=== PATIENT | male | born 1950 | race Caucasian/White ===

== ENCOUNTER 2017-11-10 14:46 | Emergency (ER) | payer MEDICARE, BC ==
[~2017-11-10] VITALS: Ht 591.1 cm; Wt 79.5 kg
[~2017-11-10 14:46] MED LIST: CARV3.125 PO; LISI-604 PO; NITR0.4T51 SL; PANT40TA4 PO; ROSU40TA PO; SUCR1TAB PO; TICA90TA PO
[2017-11-10 15:19] LABS: BASOPHILS # (AUTO) 0.1 X10'3 (0-0.2); BASOPHILS % (AUTO) 0.9 % (0-1); EOSINOPHILS # (AUTO) 0.3 X10'3 (0-0.9); EOSINOPHILS % (AUTO) 4.7 % (0-6); HEMATOCRIT 42.1 % (42.0-52.0); HEMOGLOBIN 14.5 g/dl (14.0-17.9); LYMPHOCYTES # (AUTO) 1.3 X10'3 (1.1-4.8); LYMPHOCYTES % (AUTO) 17.5 % (21-51); MEAN CORPUSCULAR HEMOGLOBIN 30.8 PG (27.0-31.0); MEAN CORPUSCULAR HGB CONC 34.5 % (33.0-36.5); MEAN CORPUSCULAR VOLUME 89.4 FL (78-98); MEAN PLATELET VOLUME 9.1 FL (7.4-10.4); MONOCYTES # (AUTO) 0.6 X10'3 (0-0.9); MONOCYTES % (AUTO) 7.8 % (2-12); NEUTROPHILS # (AUTO) 5.1 X10'3 (1.8-7.7); NEUTROPHILS % (AUTO) 69.1 % (42-75); PLATELET COUNT 215 X10'3 (140-440); RED BLOOD COUNT 4.71 X10'6 (4.70-6.10); RED CELL DISTRIBUTION WIDTH 13.4 % (11.5-14.5); WHITE BLOOD COUNT 7.4 X10'3 (4.5-11.0)
[2017-11-10] MEDS ORDERED: nitroGLYCERIN 0.4mg SUBLingual tab SL PRN (15:20)
[2017-11-10 15:42] LABS: D-DIMER 0.21 MG/L FEU (0-0.50); INR 1.1 INR; PARTIAL THROMBOPLASTIN TIME 28 SECONDS (22-32); PROTHROMBIN TIME 10.9 SECONDS (9.0-12.0)
[2017-11-10] MEDS ORDERED: ASPI81TA52 PO (15:47)
[2017-11-10] MEDS ORDERED: LISI-600 PO (15:47)
[2017-11-10] MEDS ORDERED: EZET10TA26 PO (15:47)
[2017-11-10 15:48] LABS: ALANINE AMINOTRANSFERASE 33 U/L (12-78); ALBUMIN/GLOBULIN RATIO 1.4 (1.1-1.5); ALKALINE PHOSPHATASE 64 IU/L (46-116); ANION GAP 10 (8-16); ASPARTATE AMINO TRANSFERASE 20 U/L (10-37); BILIRUBIN,TOTAL 0.8 MG/DL (0.1-1.0); BLOOD UREA NITROGEN 16 MG/DL (7-18); BUN/CREATININE RATIO 16.2 (5.4-32.0); CHLORIDE 103 MMOL/L (99-107); CREATININE 0.99 MG/DL (0.60-1.10); GLUCOSE 123 MG/DL (70-104); POTASSIUM 3.6 MMOL/L (3.5-5.1); SODIUM 136 MMOL/L (135-145); TOTAL CARBON DIOXIDE 23.1 MMOL/L (24-32); TOTAL PROTEIN 6.9 G/DL (6.4-8.2); eGFR 76 ML/MIN
[2017-11-10] MEDS ORDERED: normal saline 1000ML IV soln IVB ONE (15:55)
[2017-11-10 18:10] VITALS: BP 101/62
== END 2017-11-10 19:07 | disposition home or self-care (01) ==
LOC: ER 14:46
DX: R00.2 Palpitations (principal); I25.10 Atherosclerotic heart disease of native coronary artery without angina pectoris; I10 Essential (primary) hypertension; Z88.8 Allergy status to other drugs, medicaments and biological substances; Z79.82 Long term (current) use of aspirin; Z79.899 Other long term (current) drug therapy
CPT/HCPCS: 36415; 71045; 80053; 83880; 84484; 85025; 85379; 85610; 85730; 93005; 99285

== ENCOUNTER 2022-03-19 22:23 | Inpatient (IN) | payer MEDICARE, BC ==
[~2022-03-19] VITALS: Ht 170.2 cm; Wt 380.6 kg
[~2022-03-19 22:23] MED LIST changes: +ASPI81TA52 PO; +EZET10TA48 PO; -LISI-604 PO; +LISI20TA28 PO; -PANT40TA4 PO; +PANT40TA54 PO; -TICA90TA PO
[2022-03-19 22:54] LABS: BASOPHILS # (AUTO) 0.1 X10'3 (0-0.2); EOSINOPHILS # (AUTO) 0.2 X10'3 (0-0.9); EOSINOPHILS % (AUTO) 3.8 % (0-6); HEMATOCRIT 43.1 % (42.0-52.0); HEMOGLOBIN 14.7 g/dl (14.0-17.9); LYMPHOCYTES # (AUTO) 1.7 X10'3 (1.1-4.8); LYMPHOCYTES % (AUTO) 27.6 % (21-51); MEAN CORPUSCULAR HEMOGLOBIN 31.6 PG (27.0-31.0); MEAN CORPUSCULAR HGB CONC 34.2 g/dL (33.0-36.5); MEAN CORPUSCULAR VOLUME 92.5 FL (78-98); MEAN PLATELET VOLUME 8.1 FL (7.4-10.4); MONOCYTES # (AUTO) 0.6 X10'3 (0-0.9); MONOCYTES % (AUTO) 9.5 % (2-12); NEUTROPHILS # (AUTO) 3.6 X10'3 (1.8-7.7); NEUTROPHILS % (AUTO) 58.1 % (42-75); PLATELET COUNT 240 X10'3 (140-440); RED BLOOD COUNT 4.66 X10'6 (4.70-6.10); RED CELL DISTRIBUTION WIDTH 13.3 % (11.5-14.5); WHITE BLOOD COUNT 6.3 X10'3 (4.5-11.0)
[2022-03-19] MEDS: nitroGLYCERIN 0.4mg SUBLingual tab SL PRN ×2 (23:44→23:52)
[2022-03-19 23:50] LABS: ALANINE AMINOTRANSFERASE 28 U/L (12-78); ALBUMIN 3.9 G/DL (3.4-5.0); ALBUMIN/GLOBULIN RATIO 1.3 (1.1-1.5); ALKALINE PHOSPHATASE 67 IU/L (46-116); ANION GAP 11 (8-16); ASPARTATE AMINO TRANSFERASE 21 U/L (10-37); BILIRUBIN,TOTAL 0.3 MG/DL (0.1-1.0); BLOOD UREA NITROGEN 11 MG/DL (7-18); BUN/CREATININE RATIO 13.4 (5.4-32.0); CALCIUM 8.6 MG/DL (8.5-10.1); CHLORIDE 107 MMOL/L (99-107); CREATININE 0.82 MG/DL (0.60-1.10); GLUCOSE 103 MG/DL (70-104); MAGNESIUM 2.1 MG/DL (1.5-2.4); POTASSIUM 4.3 MMOL/L (3.5-5.1); SODIUM 142 MMOL/L (135-145); TOTAL CARBON DIOXIDE 24.5 MMOL/L (24-32); TOTAL PROTEIN 6.8 G/DL (6.4-8.2); eGFR > 90 ML/MIN
[2022-03-20] VITALS (14 sets, daily range): BP systolic 99–143; BP diastolic 54–86
[2022-03-20] MEDS ORDERED: morphine 2 MG/ML inj. syringe IV PRN (00:55)
[2022-03-20] MEDS ORDERED: regadenoson 0.4mg/5ml syringe IV PRN (00:55)
[2022-03-20] MEDS ORDERED: ondansetron/PF 4mg/2ml inj IV PRN (00:55)
[2022-03-20] MEDS ORDERED: metoprolol tartrate 1mg/ml inj IV PRN (00:55)
[2022-03-20] MEDS ORDERED: acetaminophen 325mg tablet PO PRN ×2 (00:55)
[2022-03-20] MEDS ORDERED: HYDROcodone/acetaminophen 5mg/325mg tablet PO PRN (00:55)
[2022-03-20] MEDS ORDERED: nitroGLYCERIN 0.4mg SUBLingual tab SL PRN (00:55)
[2022-03-20] MEDS ORDERED: potassium Cl 20 mEq SR tablet PO PRN ×2 (00:55)
[2022-03-20] MEDS ORDERED: magnesium Cl slow-release 64mg tablet PO PRN (00:55)
[2022-03-20] MEDS ORDERED: magnesium 4gm in 100ml NS 100 ML IV PRN (00:55)
[2022-03-20] MEDS ORDERED: aminophylline 500mg/20ml vial IV PRN (00:55)
[2022-03-20] MEDS ORDERED: potassium Cl 40MEQ/1/2NS 520ml 520 ML IV PRN (00:55)
[2022-03-20] MEDS: normal saline 1000ml 1,000 ML IV SCH ×2 (01:54→10:55)
[2022-03-20] MEDS ORDERED: lisinopril 20mg tablet PO SCH (08:00)
[2022-03-20] MEDS ORDERED: ezetimibe 10mg tablet PO SCH (08:00)
[2022-03-20] MEDS ORDERED: pantoprazole 40mg Tablet.DR PO SCH (08:00)
[2022-03-20] MEDS ORDERED: heparin, porcine 5000 units/ml vial SQ SCH (08:00)
[2022-03-20] MEDS ORDERED: carVEDilol 3.125mg tablet PO SCH (08:00)
[2022-03-20] MEDS: aspirin 81mg, enteric-coated 1 TAB TABLET.DR PO SCH (08:54)
--- NOTE | 2022-03-20 10:22 | NUR ---
Noted pt 380.6kg vis standing scale per EMR. RD d/w RN as most recent wt hx 79kg. Per RN, pt wt this AM ~170 pounds pending documentation. This would make true BMI 26.6; GENNARO notified clinical pharmacist in case pt receiving wt-based medications. Addendum: 03/20/22 at [address] Amended: Links added.
--- NOTE | 2022-03-20 12:20 | NUR ---
notified FYI [id number] results in for stanley,, I will advance diet. Nette MCMANUS [id number]
[2022-03-20] MEDS ORDERED: temazepam 15mg capsule PO PRN (21:00)
[2022-03-20] MEDS ORDERED: atorvastatin 20mg tablet PO SCH (21:00)
== END 2022-03-20 19:15 | disposition home or self-care (01) | DRG 313 ==
LOC: ER 22:23 → ED HOLD 03-20 00:58 → PCU 3S 03-20 03:03
PROVIDERS: ADMIT Internal Medicine; ATTEND Internal Medicine
PROC: 4A02XM4 Measurement of Cardiac Total Activity, External Approach (ICD-10-PCS; principal; 2022-03-20)
PROC: 3E033HZ Introduction of Radioactive Substance into Peripheral Vein, Percutaneous Approach (ICD-10-PCS; 2022-03-20)
DX: R07.89 Other chest pain (principal); E78.5 Hyperlipidemia, unspecified; M25.512 Pain in left shoulder; K57.90 Diverticulosis of intestine, part unspecified, without perforation or abscess without bleeding; F10.90 Alcohol use, unspecified, uncomplicated; I10 Essential (primary) hypertension; I25.10 Atherosclerotic heart disease of native coronary artery without angina pectoris; I25.2 Old myocardial infarction; Z95.5 Presence of coronary angioplasty implant and graft; Z88.8 Allergy status to other drugs, medicaments and biological substances
CPT/HCPCS: 36415; 71045; 73030; 78452; 80053; 83605; 83735; 83880; 84484; 85025; 87040; 93005; 93017; 93308; 99285; A4615; A9500; G0378; J1644; J2270; J2785; J7030